=== PATIENT | female | born 1995 | race Caucasian/White ===

== ENCOUNTER → 2017-08-29 11:28 | Outpatient (CLI) | payer SELFPAY | PROVIDERS: Visit Provider Nurse Practitioner Women's Health | DX: N92.6 Irregular menstruation, unspecified (principal) | CPT/HCPCS: 36415; 84703 ==

== ENCOUNTER → 2019-02-18 12:42 | Outpatient (CLI) | payer SELFPAY ==
[2019-02-18 09:49] VITALS: BMI 26.3
[2019-02-24 15:45] LABS: HPV Reflexed? NOT INDICATED
== END ==
PROVIDERS: Referring Provider Obstetrics & Gynecology; Visit Provider Obstetrics & Gynecology
DX: Z12.4 Encounter for screening for malignant neoplasm of cervix (principal)
CPT/HCPCS: 87624; 88175; G0145

== ENCOUNTER 2021-09-12 09:18 | Outpatient (CLI) | payer SELFPAY ==
[2021-09-20 18:34] LABS: HPV Reflexed? NOT INDICATED
== END 2021-09-12 23:59 | disposition home or self-care (01) ==
PROVIDERS: Visit Provider Obstetrics & Gynecology
DX: Z12.4 Encounter for screening for malignant neoplasm of cervix (principal); Z34.00 Encounter for supervision of normal first pregnancy, unspecified trimester
CPT/HCPCS: 87086; 87088; 88175; G0145

== ENCOUNTER 2021-09-15 14:39 | Outpatient (CLI) | payer SELFPAY ==
[2021-09-15 15:15] LABS: Absolute Lymphocyte Count 1.78 X10^3/uL (0.83-4.51); Absolute Neutrophil Count 7.2 X10^3/uL (2.0-7.7); Basophil# 0.03 X10^3/uL; Basophil% 0.3 % (0-1); Hematocrit 39.7 % (37-47); Hemoglobin 13.5 g/dL (12.0-15.0); Lymphocyte # 1.78 X10^3/ul (0.83-4.51); Lymphocyte % 18.4 % (19-41); Mean Corpuscular Hgb 30.9 pg (27.0-32.0); Mean Corpuscular Volume 90.8 fL (81-99); Mean Platelet Vol. 10.4 fl (6.2-12.0); Monocyte# 0.61 X10^3/uL; Monocyte% 6.3 % (0-10); NRBC Flagged by Analyzer 0 % (0-5); Neutrophil # 7.15 X10^3/uL (2.7-7.7); Neutrophil % 73.8 % (47-70); Platelet Count 274 K/mm3 (150-450); RBC Distribution Width CV 11.4 % (11.6-14.6); RBC Distribution Width SD 38.2 fl (35.1-43.9); Red Blood Count 4.37 M/mm3 (4.2-5.4); White Blood Count 9.7 K/mm3 (4.4-11.0)
[2021-09-15 15:36] LABS: Glucose Challenge Gest 1H 50g 93 mg/dL (70-140)
[2021-09-18 08:02] LABS: Rubella IgG Reactive (Nonreactive)
== END 2021-09-15 23:59 | disposition home or self-care (01) ==
LOC: LAB 14:43
PROVIDERS: Referring Provider Obstetrics & Gynecology; Visit Provider Obstetrics & Gynecology
DX: Z34.00 Encounter for supervision of normal first pregnancy, unspecified trimester (principal)
CPT/HCPCS: 36415; 82950; 85025; 86762; 86850; 86900; 86901

== ENCOUNTER → 2021-12-15 | Outpatient (CLI) | payer SELFPAY ==
--- NOTE | 2021-12-15 12:42 | US_ITS ---
HISTORY: anatomy. LMP 07/22/2021. TECHNIQUE: Transabdominal pelvic ultrasound was performed. 140 images. COMPARISON: None. FINDINGS: INTRAUTERINE GESTATION(s): Single. PRESENTATION: Transverse, head to maternal left. HEART MOTION: 147 bpm. PLACENTA: Anterior and grade 0, no placenta previa. Small sonolucencies which may represent placental lakes. CERVIX: 4.1 cm in length and closed. AMNIOTIC FLUID: Largest pocket 3.8 x 9.8 cm. biometry- HEAD CIRCUMFERENCE: 18.6 cm, corresponding to 20 weeks 6 days. BIPARIETAL DIAMETER: 4.9 cm, corresponding to 20 weeks 5 days. ABDOMINAL CIRCUMFERENCE: 17 cm, corresponding to 22 weeks 0 days. FEMORAL LENGTH: 3.3 cm, corresponding to 20 weeks 1 day. ESTIMATED GESTATIONAL AGE: 20 weeks 6 days. ESTIMATED DUE DATE (DALIA): 04/18/2022. ESTIMATED WEIGHT: 408 g corresponding to 64th percentile. ANATOMY: Anterior and posterior cranial fossa, face with profile and nose/lips, bilateral upper and lower extremities, spine, four-chamber heart, three-vessel cord insertion, stomach, kidneys, and urinary bladder visualized. US/OB Anatomy Scan IMPRESSION: Single living intrauterine currently in transverse presentation with an estimated gestational age of 20 weeks 6 days. Probable placental lakes. Unremarkable anatomic survey. Electronically Signed: Oriana Viramontes MD at 10:30 EDT ,
== END | disposition home or self-care (01) ==
PROVIDERS: Referring Provider Obstetrics & Gynecology; Visit Provider Obstetrics & Gynecology
DX: Z34.01 Encounter for supervision of normal first pregnancy, first trimester (principal)
CPT/HCPCS: 76805; 76817

== ENCOUNTER → 2022-02-08 | Outpatient (CLI) | payer SELFPAY ==
[2022-02-08 13:34] LABS: Absolute Lymphocyte Count 1.54 X10^3/uL (0.83-4.51); Basophil# 0.02 X10^3/uL; Basophil% 0.2 % (0-1); Eosinophil# 0.08 X10^3/uL; Eosinophils% 0.9 % (0-5); Hemoglobin 11.4 g/dL (12.0-15.0); Lymphocyte # 1.54 X10^3/ul (0.83-4.51); Lymphocyte % 16.6 % (19-41); Mean Corp Hgb Conc 33.5 g/dL (32-36); Mean Corpuscular Hgb 29.7 pg (27.0-32.0); Mean Corpuscular Volume 88.5 fL (81-99); Mean Platelet Vol. 10.8 fl (6.2-12.0); Monocyte# 0.58 X10^3/uL; Monocyte% 6.2 % (0-10); NRBC Flagged by Analyzer 0 % (0-5); Neutrophil # 7.02 X10^3/uL (2.7-7.7); Neutrophil % 75.6 % (47-70); Platelet Count 194 K/mm3 (150-450); RBC Distribution Width CV 13.2 % (11.6-14.6); RBC Distribution Width SD 42.8 fl (35.1-43.9); Red Blood Count 3.84 M/mm3 (4.2-5.4); White Blood Count 9.3 K/mm3 (4.4-11.0)
[2022-02-08 13:51] LABS: Glucose Challenge Gest 1H 50g 95 mg/dL (70-140)
[2022-02-12 10:47] LABS: V-Zoster IgG (Immunity) < 135 index (Immune >165)
== END | disposition home or self-care (01) ==
PROVIDERS: Obstetrics & Gynecology; Referring Provider Nurse Practitioner Women's Health; Visit Provider Nurse Practitioner Women's Health
DX: Z34.00 Encounter for supervision of normal first pregnancy, unspecified trimester (principal); Z3A.11 11 weeks gestation of pregnancy
CPT/HCPCS: 36415; 82950; 85025; 86787; 86900; 86901

== ENCOUNTER → 2022-04-06 | Outpatient (CLI) | payer SELFPAY | END | disposition home or self-care (01) | LOC: LABSPEC 17:03 | PROVIDERS: Visit Provider Obstetrics & Gynecology | DX: Z34.93 Encounter for supervision of normal pregnancy, unspecified, third trimester (principal) | CPT/HCPCS: 87081 ==

== ENCOUNTER → 2022-04-16 | Outpatient (CLI) | payer SELFPAY ==
--- NOTE | 2022-04-16 13:35 | US_ITS ---
STUDY: SECOND AND THIRD TRIMESTER OBSTETRICAL ULTRASOUND REASON FOR EXAM: Female, 26 years old growth TECHNIQUE: Transabdominal PRIOR ULTRASOUND: 12/15/2021 FINDINGS: There is a single intrauterine fetus. The fetus is in a cephalic presentation. There is demonstrated cardiac activity with a heart rate of 131 bpm. There is a normal amniotic fluid volume. The largest amniotic fluid pocket measures 8.4 cm. The amniotic fluid index (NOE) is 20 cm. The placenta is anterior and not low-lying. There are Grade 2 placental changes. The bilateral adnexal regions are normal. BPD: 9.7 cm = 39 weeks, 4 day(s) HC: 35.1 cm = 40 weeks, 6 day(s) AC: 38.5 cm FL: 7.3cm = 37 weeks, 2 day(s) EGA by ultrasound: 39 weeks 3 day(s) DALIA by ultrasound: 04/20/2022 Estimated weight: 4253 grams Weight percentile: 99% US/OB Limited With Biometrics IMPRESSION: Living intrauterine with estimated gestational age of 39 weeks and 3 days. Electronically Signed: Yefri Noble MD at 23:44 EDT ,
== END | disposition home or self-care (01) ==
PROVIDERS: Referring Provider Obstetrics & Gynecology; Visit Provider Obstetrics & Gynecology
DX: O99.210 Obesity complicating pregnancy, unspecified trimester (principal); Z3A.38 38 weeks gestation of pregnancy
CPT/HCPCS: 76816

== ENCOUNTER → 2022-04-17 | Outpatient (CLI) | payer SELFPAY ==
[2022-04-17 17:53] LABS: Hemoglobin A1c 5.2 % (3.8-5.6)
== END | disposition home or self-care (01) ==
LOC: LAB 17:19
PROVIDERS: Visit Provider Obstetrics & Gynecology
DX: Z34.00 Encounter for supervision of normal first pregnancy, unspecified trimester (principal)
CPT/HCPCS: 36415; 83036

== ENCOUNTER 2022-04-26 02:50 | Inpatient (IN) | payer SELFPAY ==
[2022-04-26] VITALS (72 sets, daily range): BP systolic 99–151; BP diastolic 53–94; PULSE 75–175; TEMP 35.7–37.3; O2SAT 83–100; BMI 37.4
[2022-04-26] MEDS: LACTATED RINGERS 500 ML 999 ML IV ×2 (03:20→11:29)
[2022-04-26 03:47] LABS: Absolute Lymphocyte Count 2.69 X10^3/uL (0.83-4.51); Absolute Neutrophil Count 9.2 X10^3/uL (2.0-7.7); Basophil# 0.05 X10^3/uL; Basophil% 0.4 % (0-1); Eosinophil# 0.08 X10^3/uL; Eosinophils% 0.6 % (0-5); Hematocrit 36.9 % (37-47); Hemoglobin 12.4 g/dL (12.0-15.0); Lymphocyte # 2.69 X10^3/ul (0.83-4.51); Lymphocyte % 20.7 % (19-41); Mean Corp Hgb Conc 33.6 g/dL (32-36); Mean Corpuscular Volume 86.4 fL (81-99); Mean Platelet Vol. 11.6 fl (6.2-12.0); Monocyte# 0.92 X10^3/uL; Monocyte% 7.1 % (0-10); NRBC Flagged by Analyzer 0 % (0-5); Neutrophil # 9.17 X10^3/uL (2.7-7.7); Neutrophil % 70.7 % (47-70); Platelet Count 258 K/mm3 (150-450); RBC Distribution Width CV 13.7 % (11.6-14.6); RBC Distribution Width SD 42.8 fl (35.1-43.9); Red Blood Count 4.27 M/mm3 (4.2-5.4)
[2022-04-26] MEDS: Lactated Ringers 1,000 ML 200 ML IV ×3 (04:00→19:15)
[2022-04-26 04:12] LABS: Amphetamine Urine VISTA NEGATIVE (<1000 ng/mL); Barbiturate Urine VISTA NEGATIVE (< 200 ng/mL); Benzodiazepine Urine VISTA NEGATIVE (< 200 ng/mL); Cocaine Urine VISTA NEGATIVE (< 300 ng/mL); Ecstacy Urine VISTA NEGATIVE (< 500 ng/mL); Methadone Urine VISTA NEGATIVE (< 300 ng/mL); PCP Urine VISTA NEGATIVE (< 25 ng/mL); THC Urine VISTA NEGATIVE (< 50 ng/mL); Vista UDS pH Range 7
[2022-04-26] MEDS: Mag Hydrox/Al Hydrox/Simeth 30 ML UDC PO ×2 (05:41→15:57)
[2022-04-26 05:44] LABS: Syphilis Antibodies Non-reactive
[2022-04-26] MEDS: 0.9% Saline Lock 10 ML Syringe IV ×2 (06:28→21:49)
[2022-04-26] MEDS: Ondansetron 4 MG/2 ML Vial IV (06:28)
[2022-04-26 07:12] LABS: Chlamydia Trachomatis by PCR Negative (Negative); Neisserai gonorrhoeae by PCR Negative (Negative); Probe Check PASS; Sample Adequacy Control PASS; Specimen Processing Control PASS
[2022-04-26 08:45] LABS: HIV - WCH Non-Reactive (Nonreactive); Hepatitis B Surface Antigen Non-Reactive (Nonreactive); Hepatitis C Antibody Non-Reactive (Nonreactive)
--- NOTE | 2022-04-26 09:06 | HP.PCM.OB_ITS ---
HPI - General General Date of Admission: 04/26/22 HPI Narrative WILLIE TEMPLE, is a 26 F who presents IAL 4 cm dilated ROM clear fluid regular ctx doing well Maternal Data Information DALIA Calculator Estimated Delivery Date Method Current WG Current Estimate 04/28/22 Ultrasound #1 39w 5d Other Estimates 04/19/22 LMP (Certain) 41w 0d PFSH PFSH Medical History (Updated 04/26/22 @ 09:[address] Mildred Weems MD) macrosomia Polyhydramnios Psoriasis (a type of skin inflammation) Home Medications prenat.vits,lluvia,lzq-sbqm-gvdgu 1 tab PO DAILY 08/28/21 [History Last Taken 04/25/22 12:00] cholecalciferol (vitamin D3) 25 mcg (1,000 unit) capsule 25 mcg PO DAILY 02/22/22 [History Last Taken 04/25/22 12:00] magnesium oxide 500 mg capsule 500 mg PO DAILY 02/22/22 [History Last Taken 04/25/22 12:00] Allergy/AdvReac Type Severity Reaction Status Date / Time No Known Allergies Allergy Verified 04/24/22 16:03 Family History Mother Skin cancer Surgical History History of tonsillectomy Social History adopted: No household members: spouse and children number of children: 1 current occupational status: employed current occupation: [employer] pets and animals: Yes pets and animals: cat(s) and dog(s) Smoking Status: Never smoker alcohol intake: current details: social; not while substance use type: does not use caffeine: Yes what type of physical activity do you participate in: none seatbelt use: always do you feel safe at home: Yes additional social history: Patient works at [employer] History 1 Elective abortions Hx Para 0 Spontaneous abortions Hx # Term Pregnancies Ectopic pregnancies Hx # Pregnancies Multiple births # of living children 0 Visit Details Expected Delivery Route/Plan Labor Preferences- CB/BF classes: encouraged labor support person: Pierre labor intervention preferences: minimal intervention pain management options preferred: discussed, undecided cut cord/dad catch: yes : yes PP control planned: discussed discussed possible routes of delivery and associated risks: [] special requests: [] Plans Covid status: discussed Flu vaccine: discussed Tdap vaccine: given Rhogam: given LARC form signed: yes Problem list reviewed and updated with the most current plan of care details and appropriate orders placed. Relevant counseling for the gestational age provided. Continue routine care and follow up unless otherwise noted in visit notes/problem list details OB Flowsheet Initial Weight: Not Recorded Date -?-?-?-?-?-?-?-?-?-?-?-?- EGA Weight BP Urine Prot -?-?-?-?-?-?-?-?-?-?-?-?- Glucose FHR FuHt Pres Dilation -?-?-?-?-?-?-?-?-?-?-?-?- Effaced St Visit Note 09/12/21 -?-?-?-?-?-?-?-?-?-?-?-?- 7w 3d 209 lb 6 oz 128/80 -?-?-?-?-?-?-?-?-?-?-?-?- -?-?-?-?-?-?-?-?-?-?-?-?- JV- new dalia of 1 given based on CRL that was off by more than 1 week from LMP 10/13/21 -?-?-?-?-?-?-?-?-?-?-?-?- 11w 6d 206 lb 116/62 Negative -?-?-?-?-?-?-?-?-?-?-?-?- Negative 168 -?-?-?-?-?-?-?-?-?-?-?-?- SM- SM- no vb cramping SM- no vb cramping discussed varicella screen, didin't get drawn with original labs, plan avoidance and patient requested to be drawn with 28 week labs 11/09/21 -?-?-?-?-?-?-?-?-?-?-?-?- 15w 5d 210 lb 2 oz 139/84 139/84 Negative -?-?-?-?-?-?-?-?-?-?-?-?- Negative -?-?-?-?-?-?-?-?-?-?-?-?- 12/08/21 -?-?-?-?-?-?-?-?-?-?-?-?- 19w 6d 210 lb 6 oz 116/82 Nega tive -?-?-?-?-?-?-?-?-?-?-?-?- Negative 155 -?-?-?-?-?-?-?-?-?-?-?-?- JV- no lof, vagi nal bleeding, or cramping. + FM. anatomy ultrasound next week at [facility]. 01/05/22 -?-?-?-?-?-?-?-?-?-?-?-?- 23w 6d 211 lb 6 oz 108/82 Nega tive -?-?-?-?-?-?-?-?-?-?-?-?- Negative 140 24 -?-?-?-?-?-?-?-?-?-?-?-?- Sm- no vb lof go od fm nor egular ctx 02/08/22 -?-?-?-?-?-?-?-?-?-?-?-?- 28w 5d 213 lb 114/60 Negative -?-?-?-?-?-?-?-?-?-?-?-?- Negative 153 28 -?-?-?-?-?-?-?-?-?-?-?-?- -NO VB, LOF. Good FM. 28 wk labs, rhogam, tdap and larc 02/22/22 -?-?-?-?-?-?-?-?-?-?-?-?- 30w 5d 217 lb 2 oz 112/64 Nega tive -?-?-?-?-?-?-?-?-?-?-?-?- Negative 166 31 -?-?-?-?-?-?-?-?-?-?-?-?- -No VB, LOF. G ood FM. 08/26/22 -?-?-?-?-?-?-?-?-?-?-?-?- 32w 6d 216 lb 126/88 Negative -?-?-?-?-?-?-?-?-?-?-?-?- Negative 160 33 -?-?-?-?-?-?-?-?-?-?-?-?- JV- no lof, vagi nal bleeding, or dec fm. no complaints. 03/23/22 -?-?-?-?-?-?-?-?-?-?-?-?- 34w 6d 217 lb 110/72 Negative -?-?-?-?-?-?-?-?-?-?-?-?- Negative 163 36 -?-?-?-?-?-?-?-?-?-?-?-?- JV-no lof, vagin al bleeding, or dec fm. 04/06/22 -?-?-?-?-?-?-?-?-?-?-?-?- 36w 6d 222 lb 222 lb 116/80 -?-?-?-?-?-?-?-?-?-?-?-?- 125 38 Cephalic 0 -?-?-?-?-?-?-?-?-?-?-?-?- SM- no vb lof go od fm no regular ctx 04/13/22 -?-?-?-?-?-?-?-?-?-?-?-?- 37w 6d 221 lb 114/78 Negative -?-?-?-?-?-?-?-?-?-?-?-?- Negative 130 40 Cephalic -?-?-?-?-?-?-?-?-?-?-?-?- SM- no vb lof go od fm no regular ctx growth US ordered 04/17/22 -?-?-?-?-?-?-?-?-?-?-?-?- 38w 3d 224 lb 134/88 Negative -?-?-?-?-?-?-?-?-?-?-?-?- Negative 130 Cephalic 1.5 -?-?--?-?-?-?-?-?-?-?-?-?- 40 -3 SM- no vb lof good fm no regular ctx discussed IOL 39 weeks due to poly and LGA. brother getting saturday at their house patient requesting /saturday04/20/22 -?-?-?-?-?-?-?-?-?-?-?-?- 38w 6d 225 lb 2 oz 132/79 Nega tive -?-?-?-?-?-?-?-?-?-?-?-?- Negative 140 40 Cephalic 1 .5 -?-?-?-?-?-?-?-?-?--?-?-?- 40 -3 JV- recent us showed NOE of 20, pt does not want to be induced. we discussed holding a spot on the schedule for 39 + weeks and repeat us for NOE on Saturday prior to scheduled induction. we discussed that weight is 99th% (4300 grams) and LGA is technically not defined until after 5000g in a non- diabetic. NST reactive. 04/24/22 -?-?-?-?-?-?-?-?-?-?-?-?- 39w 3d 228 lb 4 oz 118/82 Nega tive -?-?-?-?-?-?-?-?-?-?-?-?- Negative 150 39 Cephalic 3 -?-?-?-?-?-?-?-?-?-?-?-?- 60 -3 JV- no lof , vaginal bleeding, or dec fm. JV- no lof, vaginal bleeding , or dec fm. pt requesting IOL 04/26/22 -?-?-?-?-?-?-?-?-?-?-?-?- 39w 5d 224 lb 12.8 oz 136/8 2 128/61 124/62 137/74 115/58 129/78 -?-?-?-?-?-?-?-?-?-?-?-?- -?-?-?-?-?-?-?-?-?-?-?-?- NST FHR Rate Baby A Baseline: 130 Variability:: Moderate Accelerations:: 15 x 15 Decelerations:: None NST Reactive:: Yes FHR Category:: Category I Uterine Activity:: q2-3 ROS Constitutional Constitutional: Reports systems reviewed and no addt'l complaints, except as documented ENT HEENT: Reports systems reviewed and no addt'l complaints, except as documented Cardiovascular Cardiovascular: Reports systems reviewed and no addt'l complaints, except as documented Respiratory/Chest Respiratory/Chest: Reports systems reviewed and no addt'l complaints, except as documented Gastrointestinal Gastrointestinal: Reports systems reviewed and no addt'l complaints, except as documented and nausea; Denies abdominal pain Genitourinary Genitourinary: Reports systems reviewed and no addt'l complaints, except as documented, contractions Details: present and frequency (regular ) and movement Details: present Musculoskeletal Musculoskeletal: Reports systems reviewed and no addt'l complaints, except as documented Integumentary Integumentary: Reports as per HPI Neurologic Neurologic: Reports systems reviewed and no addt'l complaints, except as documented Endocrine Endocrinology: Reports systems reviewed and no addt'l complaints, except as documented Vital Signs Vital Signs Vital Signs: 04/26/22 03:00 04/26/22 03:00 04/26/22 03:06 Temperature Temperature Source Pulse Rate 93 Blood Pressure 136/82 H BP Systolic 136 BP Diastolic 82 Pulse Ox 99 04/26/22 03:06 04/26/22 03:05 04/26/22 05:34 Temperature Temperature Source Pulse Rate 89 Blood Pressure 128/61 H BP Systolic 128 BP Diastolic 61 Pulse Ox 98 04/26/22 05:34 04/26/22 06:20 04/26/22 06:20 Temperature Temperature Source Pulse Rate 93 92 Blood Pressure BP Systolic BP Diastolic Pulse Ox 96 04/26/22 06:21 04/26/22 06:22 04/26/22 06:22 Temperature Temperature Source Temporal Pulse Rate 78 Blood Pressure 124/62 H BP Systolic 124 BP Diastolic 62 Pulse Ox 04/26/22 06:21 04/26/22 06:33 04/26/22 06:33 Temperature 97.1 F L Temperature Source Pulse Rate 100 Blood Pressure BP Systolic BP Diastolic Pulse Ox 96 04/26/22 07:20 04/26/22 07:20 04/26/22 07:19 Temperature Temperature Source Pulse Rate 109 H Blood Pressure 137/74 H BP Systolic 137 BP Diastolic 74 Pulse Ox 100 04/26/22 07:22 04/26/22 07:22 04/26/22 07:23 Temperature Temperature Source Temporal Pulse Rate 85 Blood Pressure 115/58 L BP Systolic 115 BP Diastolic 58 Pulse Ox 04/26/22 07:23 04/26/22 07:23 04/26/22 07:23 Temperature 96.3 F L Temperature Source Pulse Rate 85 Blood Pressure BP Systolic BP Diastolic Pulse Ox 100 04/26/22 08:43 04/26/22 08:43 Temperature Temperature Source Pulse Rate 95 Blood Pressure 129/78 H BP Systolic 129 BP Diastolic 78 Pulse Ox Weight Weight: 224 lb 12.8 oz Body Mass Index (BMI) 37.4 Physical Exam Const alert, oriented x3 and healthy appearing Constitutional Narrative: uncomfortable with contractions HEENT normocephalic and moist oral mucous membranes Head and Scalp: atraumatic Neck full ROM, no lymphadenopathy, supple and thyroid normal General: trachea midline Thyroid: thyroid normal Lymph Lymphatic: no lymphadenopathy noted Chest inspection of chest normal Resp normal respiratory effort Cardio regular rate GI normal to inspection, nondistended, normoactive bowel sounds, soft to palpation and non-tender Inspection: gravid external exam normal Bimanual Exam - Vag & Uterus: uterus non-tender Manual OB Exam: estimated gestational size appropriate, presentation cephalic, dilated, effaced and station Extremity normal to inspection General Extremity: Negative for edema Skin no rashes or lesions noted Neuro deep tendon reflexes 2+ bilaterally Motor Exam: strength 5/5 throughout and clonus absent Psych mental status grossly normal Labs Labs Labs: Blood Type B NEGATIVE Antibody Screen NEGATIVE Hct 36.9 % (37-47) L Hgb 12.4 g/dL (12.0-15.0) Obstetrics US Syphilis Total Ab Non-reactive VZV IgG Antibody < 135 index (Immune >165) L Rubella IgG Antibody Reactive (Nonreactive) Hep Bs Antigen Non-Reactive (Nonreactive) HIV 1&2 Antibody Non-Reactive (Nonreactive) Glucose 1 Hr 50 gm 95 mg/dL (70-140) Assessment & Plan (1) MAHNAZ I (cervical intraepithelial neoplasia I): COMMENT: lgsil, colp done, fu pap PP (2) Supervision of normal first : QUALIFIERS: Trimester: first trimester Qualified Code(s): Z34.01 - Encounter for supervision of normal first , first trimester COMMENT: PRR (SP) DALIA:04/28/22 sreekanth garica Spouse:Pierre(Ashwin) (3) : QUALIFIERS: Weeks of gestation: 39 weeks Qualified Code(s): Z3A.39 - 39 weeks gestation of COMMENT: GBS Negative, nl anatomy scan; Discussed carrier and genetic screen. FOB has brother with hemophilia. (4) Unknown varicella vaccination status: COMMENT: lab ordered-do w 28 wk labs, non-immune, recommend varicella vaccination (5) Obesity affecting : COMMENT: 1 TM GCT nl. encouraged healthy weight gain. (6) Rh negative status during : COMMENT: 02/08/22 (7) History of tetanus, diphtheria, and acellular pertussis booster vaccination (Tdap): COMMENT: 02/08/22 (8) Polyhydramnios: COMMENT: IOL declined by patient, reassuring testing (9) LGA (large for gestational age) fetus: COMMENT: 99%ile 4250g 04/16, HgA1c nl 05/05 nl GCT previously (10) Active labor at term: COMMENT: exp management, pitoci PRN. epidural if desired but wants minimal intervention (11) SROM (spontaneous rupture of membranes):
[2022-04-26] MEDS: fentaNYL 100 MCG/2 ML Ampul IV ×3 (12:06→21:47)
[2022-04-26] MEDS: fentaNYL-bupivacaine (epidural) 100 ML BAG EPIDURAL ×2 (12:24→16:01)
[2022-04-26] MEDS: Oxytocin 10 UNITS/ML Vial IM (21:31)
--- NOTE | 2022-04-26 22:03 | OP.PCM_ITS ---
Assessment & Plan (1) SROM (spontaneous rupture of membranes): (2) Active labor at term: COMMENT: exp management, pitoci PRN. epidural if desired but wants minimal intervention (3) MAHNAZ I (cervical intraepithelial neoplasia I): COMMENT: lgsil, colp done, fu pap PP (4) Supervision of normal first : QUALIFIERS: Trimester: first trimester Qualified Code(s): Z34.01 - Encounter for supervision of normal first , first trimester COMMENT: PRR (SP) DALIA:04/28/22 sreekanth garcia Spouse:Pierre(Ashwin) (5) : QUALIFIERS: Weeks of gestation: 39 weeks Qualified Code(s): Z3A.39 - 39 weeks gestation of COMMENT: GBS Negative, nl anatomy scan; Discussed carrier and genetic screen. FOB has brother with hemophilia. (6) Unknown varicella vaccination status: COMMENT: lab ordered-do w 28 wk labs, non-immune, recommend varicella vaccination (7) Obesity affecting : COMMENT: 1 TM GCT nl. encouraged healthy weight gain. (8) Rh negative status during : COMMENT: 02/08/22 (9) History of tetanus, diphtheria, and acellular pertussis booster vaccination (Tdap): COMMENT: 02/08/22 (10) Polyhydramnios: COMMENT: IOL declined by patient, reassuring testing (11) LGA (large for gestational age) fetus: COMMENT: 99%ile 4250g 04/16, HgA1c nl 05/05 nl GCT previously (12) Vaginal delivery: COMMENT: SM 39 IAL sreekanth ibrahim Maternal Data Information DALIA Calculator Estimated Delivery Date Method Current WG Current Estimate 04/28/22 Ultrasound #1 39w 5d Other Estimates 04/19/22 LMP (Certain) 41w 0d Vaginal Delivery Operative Information Pre-Operative Diagnosis: IAL Post-Operative Diagnosis: same Surgery / Procedure Performed: Spontaneous Vaginal Delivery Type of Anesthesia: Epidural Special Medications: none Estimated Blood Loss: 100 Fluids Replaced: crystalloid Findings Description of Procedure: Patient began pushing and delivered the head in the ANNI presentation. The head was delivered atraumatically and a loose nuchal cord ?1 was identified and the infant delivered through without complication. The anterior and posterior shoulders delivered without complication followed by the rest of the infant and the was placed on the maternal abdomen. Delayed cord clamping was employed for approximately 60 seconds. Cord was clamped and cut and gentle traction was applied to the cord and the placenta delivered spontaneously immediately following it was noted to be intact with three-vessel cord. The perineum and vagina were inspected and noted to have a partial third degree laceration repaired in the usual fashion with 2-0 vicryl and 3-0 vicryl rapide. EBL was 400. Patient and infant tolerated delivery well. Presentation: ANNI Amniotic Membrane Rupture Type: Spontaneous Amniotic Fluid Description: Clear Placental Delivery Description: Spontaneous Placenta Disposition: [facility] Cord Vessel Description: 3 Vessels Cord Entanglement: None Delayed Cord Clamping: Yes Post Vaginal Delivery Medications Given After Delivery: IV Pitocin Episiotomy Description: None Laceration: Perineal Extension/lac and 3rd degree Complication Complications: None Procedures Urinary/Genital [id number]: [id number] Vaginal Delivery [facility]
--- NOTE | 2022-04-26 22:07 | DCINST_ITS ---
Discharge Instructions Diet Discharge Diet: No restrictions Activity Discharge Activity: Return to Normal Activity, May Drive, May Shower and May Take a Tub Bath (in 4 weeks) May resume sexual activity in: 6-8 weeks (after seen by OB provider) Weight Bearing Status: Full weight bearing Lifting Restrictions: none Dressing / Incision Call your doctor if you observe: Fever of 101 or Higher, Inability to urinate, Using more than 1 pad per hour (for more than 2 hours in a row or more), Shortness of breath, Dizziness, Chest pain and - (headache not controlled with tylenol, change in vision) Follow Up Care When: in 6 weeks for visit, call the office to make the appointment. If you had elevated blood pressures call the office to be seen within 1 week. Test Results: Test results from this visit will be discussed in further detail at your follow- up appointment, if applicable. Discharge Plan Admission Admit Date/Time: 04/26/22 02:50 Attending Provider: Mildred Weems Primary Care Provider: Care Physician,Polina Primary Discharge Orders/Prescriptions Prescriptions: No Action prenat.vits,lluvia,dch-bwoj-aakal Tablet 1 tab PO DAILY magnesium oxide 500 mg capsule 500 mg PO DAILY cholecalciferol (vitamin D3) 25 mcg (1,000 unit) capsule 25 mcg PO DAILY Referrals / Follow Up: Care Physician,No Primary [Primary Care Provider] - Disposition Disposition (needs filled in before D/C Order can be placed): Home, Self Care
[2022-04-27 00:01] VITALS: BP 113/57; PULSE 98; TEMP 37.2; O2SAT 99
[2022-04-27] MEDS: Naproxen 500 MG Tablet PO ×3 (00:09→21:59)
[2022-04-27] MEDS: Benzocaine/Lanolin/Aloe Vera 1 SPRAY EACH TOPICAL (00:10)
--- NOTE | 2022-04-27 02:16 | NURSING ---
report given to allen TAYLOR. that RN to assume care of pt at this time
[2022-04-27 04:15] VITALS: BP 107/52; PULSE 82; RESP 14; TEMP 36.6; O2SAT 98
[2022-04-27] MEDS: Acetaminophen 500 MG Tablet 1000 MG PO (04:29)
--- NOTE | 2022-04-27 07:39 | PCM.PN.OB ---
Subjective Subjective Patient doing well without complaints. Tolerating PO. Ambulating and voiding without difficulty. feeding well. Denies chest pain, shortness of breath, calf pain/swelling, fevers, chills, lightheadedness. Objective Data Objective Data Vital Signs: Vital Signs Temp Pulse Resp BP Pulse Ox O2 Del Method 97.8 F 82 14 107/52 L 98 Room Air 04/27/22 04:15 04/27/22 04:15 04/27/22 04:15 04/27/22 04:15 04/27/22 04:15 04/27/22 04:15 Oxygen Delivery Method Room Air Weight: 224 lb 12.8 oz Body Mass Index (BMI) 37.4 Intake & Output: Intake and Output for Last 24 Hours 04/25/22 04/26/22 04/27/22 23:59 23:59 23:59 Intake Total 4400 / 4400 1000 / 1000 Output Total 1500 / 1500 900 / 900 Balance 2900 / 2900 100 / 100 Lab / Micro Data Result Diagrams: 04/26/22 03:40 Labs: Laboratory Results - last 24 hr 04/26/22 03:40: Hep Bs Antigen Non-Reactive, Hepatitis C Antibody Non-Reactive, HIV 1&2 Antibody Non-Reactive 04/27/22 00:12: Screen NEGATIVE, Baby's Blood Type B POSITIVE, Baby's MEGAN NEGATIVE Micro: Microbiology 04/26/22 03:40 Nasal Secretion SARS-CoV-2 Antigen (Rapid) - Final ROS Constitutional Constitutional: Reports systems reviewed and no addt'l complaints, except as documented Cardiovascular Cardiovascular: Reports systems reviewed and no addt'l complaints, except as documented Respiratory/Chest Respiratory/Chest: Reports systems reviewed and no addt'l complaints, except as documented Gastrointestinal Gastrointestinal: Reports systems reviewed and no addt'l complaints, except as documented Physical Exam Const alert, oriented x3 and no apparent distress HEENT Head and Scalp: atraumatic Resp normal respiratory effort GI soft to palpation and non-tender Bimanual Exam - Vag & Uterus: uterus non-tender Uterus Palpation: uterus fundus firm (below Umbilicus) Assessment & Plan (1) Rh negative status during : COMMENT: 02/08/22 (2) Vaginal delivery: COMMENT: SM 39 IAL boy xaviour PLAN: Plan s/p PPD # 1 1. routine post delivery care 2. breast feeding- support given 3. rh negative 4. rubella immune
[2022-04-27 10:00] VITALS: BP 129/67; PULSE 91; RESP 16; TEMP 37.1
[2022-04-27] MEDS: Magnesium Chloride 64 MG Delay Rel.Tablet 128 MG PO (10:30)
[2022-04-27 13:09] VITALS: BP 104/61; PULSE 96; RESP 16; TEMP 36.9
[2022-04-27] MEDS: Senna/Docusate Sodium 1 Tablet PO (16:55)
[2022-04-27 17:00] VITALS: BP 143/72; PULSE 99; RESP 16; TEMP 36.6
[2022-04-27 20:31] VITALS: BP 101/57; PULSE 84; RESP 14; TEMP 37.1; O2SAT 99
[2022-04-27] MEDS: oxyCODONE 5 MG Tablet PO (22:00)
[2022-04-28 02:00] VITALS: BP 99/63; PULSE 85; RESP 16; TEMP 37; O2SAT 100
[2022-04-28] MEDS: Acetaminophen 500 MG Tablet 1000 MG PO ×2 (05:21→11:41)
--- NOTE | 2022-04-28 07:32 | PCM.PN.OB ---
Subjective Subjective Patient doing well without complaints. Tolerating PO. Ambulating and voiding without difficulty. feeding well. Denies chest pain, shortness of breath, calf pain/swelling, fevers, chills, lightheadedness. Objective Data Objective Data Vital Signs: Vital Signs Temp Pulse Resp BP Pulse Ox O2 Del Method 98.6 F 85 16 99/63 100 Room Air 04/28/22 02:00 04/28/22 02:00 04/28/22 02:00 04/28/22 02:00 04/28/22 02:00 04/28/22 02:00 Oxygen Delivery Method Room Air Weight: 224 lb 12.8 oz Body Mass Index (BMI) 37.4 Intake & Output: Intake and Output for Last 24 Hours 04/26/22 04/27/22 04/28/22 23:59 23:59 23:59 Intake Total 4400 / 4400 1000 / 1000 Output Total 1500 / 1500 900 / 900 Balance 2900 / 2900 100 / 100 Lab / Micro Data Result Diagrams: 04/26/22 03:40 Micro: Microbiology 04/26/22 03:40 Nasal Secretion SARS-CoV-2 Antigen (Rapid) - Final ROS Constitutional Constitutional: Reports systems reviewed and no addt'l complaints, except as documented Cardiovascular Cardiovascular: Reports systems reviewed and no addt'l complaints, except as documented Respiratory/Chest Respiratory/Chest: Reports systems reviewed and no addt'l complaints, except as documented Gastrointestinal Gastrointestinal: Reports systems reviewed and no addt'l complaints, except as documented Physical Exam Const alert, oriented x3 and no apparent distress HEENT Head and Scalp: atraumatic Resp normal respiratory effort GI soft to palpation and non-tender Bimanual Exam - Vag & Uterus: uterus non-tender Uterus Palpation: uterus fundus firm (below Umbilicus) Assessment & Plan (1) Vaginal delivery: COMMENT: SM 39 IAL boy xaviour (2) Rh negative status during : COMMENT: 02/08/22 PLAN: Plan s/p PPD # 2 1. routine post delivery care 2. breast feeding- support given 3. rh negative 4. rubella immune
[2022-04-28 08:50] VITALS: BP 115/73; PULSE 86; RESP 18; TEMP 36.9; O2SAT 97
[2022-04-28] MEDS: Naproxen 500 MG Tablet PO (09:28)
[2022-04-28] MEDS: Dibucaine 30 GM Tube 1 APPLIC TOPICAL (09:28)
[2022-04-28] MEDS: Senna/Docusate Sodium 1 Tablet PO (09:28)
== END 2022-04-28 12:10 | disposition home or self-care (01) | DRG 768 ==
PROVIDERS: Obstetrics & Gynecology; Admitting Provider Obstetrics & Gynecology; Visit Provider Obstetrics & Gynecology
DX: O40.3XX0 Polyhydramnios, third trimester, not applicable or unspecified (principal); Z37.0 Single live birth; O70.20 Third degree perineal laceration during delivery, unspecified; E66.8 Other obesity; O36.63X0 Maternal care for excessive fetal growth, third trimester, not applicable or unspecified; O69.81X0 Labor and delivery complicated by cord around neck, without compression, not applicable or unspecified; Z3A.39 39 weeks gestation of pregnancy; Z92.29 Personal history of other drug therapy; Z67.91 Unspecified blood type, Rh negative; O99.214 Obesity complicating childbirth
CPT/HCPCS: 59025; 59050; 80307; 85025; 85461; 86703; 86780; 86803; 86850; 86900; 86901; 87340; 87426; 87491; 87591; 90384; 99218; J7120; A4216; G0378; J2405; J2790

== ENCOUNTER → 2023-09-09 | Outpatient (CLI) | payer SELFPAY ==
--- OUTSIDE RECORDS SUMMARY | 2023-09-09 23:10 | XMS RPT_ITS | CCD ---
Author Name Unknown Address [address] [place] [address] Organization [facility] Care Team Providers Care Agriculture Technician Name Role Phone PHYSICIAN, NONE Primary Care Unavailable BRANDIE APARICIO Attending Unavailable REFERRING, PHY WO [phone] Referring Unava ilable Results Test Name Value Interpretation Reference Range Facil ity Encounters Encounter Date Encounter Type Care Provider Facility Start: 03-29-2018 End: 03-29-2018 Emergency department patient visit NONE PHYSICIAN Facil ity:A Payers Date Payer Category Payer Unknown [place]000 [id number] 1995 Unknown [id number] Summary Purpose Family History No Family History Records Found Advance Directives No Advanced Directives Records Found Additional Source Comments INFORMATION SOURCE (unrecogn ized section and content) FOR RECORDS PERTAINING TO PATIENTS WHO ARE OR HAVE BEEN ENROLLED IN A CHEMICAL DEPENDENCY/SUBSTANCEABUSE PROGRAM, SOME INFORMATION MAY BE OMITTED. This clinical summary was aggregated from multiple sources. Caution should be exercised in using it in the provision of clinical care. This summary normalizes information from multiple sources, and as a consequence, information in this document may materially change the coding, format and clinical context of patient data. In addition, data may be omitted in some cases. CLINICAL DECISIONS SHOULD BE BASED ON THE PRIMARY CLINICAL RECORDS. [facility]. provides no warranty or guarantee of the accuracy or completeness of information in this document.
[2023-09-13 15:08] LABS: HPV APTIMA, High Risk Positive (Negative)
== END | disposition home or self-care (01) ==
PROVIDERS: Referring Provider Nurse Practitioner Women's Health; Visit Provider Nurse Practitioner Women's Health
DX: Z12.4 Encounter for screening for malignant neoplasm of cervix (principal)
CPT/HCPCS: 87624; 88175; G0145

== ENCOUNTER → 2025-02-12 | Outpatient (CLI) | payer SELFPAY ==
[2025-02-12 11:45] LABS: Hematocrit 40.9 % (37-47); Hemoglobin 13.8 g/dL (12.0-15.0); Immature Granulocytes Count 0.040 X10^3/uL (0.0-0.0); Mean Corp Hgb Conc 33.7 g/dL (32-36); Mean Corpuscular Volume 88.9 fL (81-99); Mean Platelet Vol. 10.9 fl (6.2-12.0); NRBC Flagged by Analyzer 0 % (0-5); Platelet Count 268 K/mm3 (150-450); RBC Distribution Width CV 11.9 % (11.6-14.6); RBC Distribution Width SD 37.7 fl (35.1-43.9); Red Blood Count 4.60 M/mm3 (4.2-5.4); White Blood Count 9.0 K/mm3 (4.4-11.0)
[2025-02-12 12:31] LABS: HIV Nonreactive (Nonreactive); Hepatitis B Surface Antigen Nonreactive (Nonreactive); Hepatitis C Antibody Nonreactive (Nonreactive); Syphilis Antibodies Nonreactive (Nonreactive)
[2025-02-15 21:07] LABS: Chlamydia By Nucleic Acid AMP Negative (Negative); Gonococcus By Nucleic Acid AMP Negative (Negative)
[2025-02-16 15:08] LABS: HPV APTIMA, High Risk Positive (Negative)
== END | disposition home or self-care (01) ==
LOC: BWCLAB 09:28
PROVIDERS: Referring Provider Advanced Practice Midwife; Visit Provider Advanced Practice Midwife
DX: Z12.4 Encounter for screening for malignant neoplasm of cervix (principal); O99.210 Obesity complicating pregnancy, unspecified trimester; Z3A.00 Weeks of gestation of pregnancy not specified
CPT/HCPCS: 36415; 83036; 85025; 86703; 86762; 86780; 86803; 86850; 86900; 86901; 87086; 87340; 87491; 87591; 87624; 88175; G0145

== ENCOUNTER → 2025-07-02 | Outpatient (CLI) | payer SELFPAY ==
--- NOTE | 2025-07-02 13:01 | US_ITS ---
PROCEDURE: OB LIMITED WITH BIOMETRICS 07/02/2025 REASON FOR EXAM: GROWTH SCAN TWINS @ [facility] TECHNIQUE: Procedure Code: [id number] Modality: US Procedure: OB LIMITED WITH BIOMETRICS COMPARISON: 02/12/2025 FINDINGS NUMBER: Twin gestation CERVIX: Long and closed measuring 4.0 cm in length. Unremarkable as visualized. LMP gestational age: 26 weeks 6 days LMP DALIA: October 02, 2025 TWIN A: POSITION: position is breech on the maternal left side. HEART RATE: The heart rate is 155 BPM and regular. BIOMETRICS: Based on composite biometry, the composite estimated gestational age by ultrasound is 26 weeks 3 days. Sonographic gestational age: 26 weeks 3 days Sonographic DALIA: October 05, 2025 ANATOMIC SURVEY: Detailed anatomy survey not performed. PLACENTA: The placenta is posterior, grade 0. No demonstrated evidence of previa or abruption. AMNIOTIC FLUID: Within normal limits. Maximal vertical pocket (MVP) measuring 5.5 cm. SONOGRAPHIC MEASUREMENTS: BPD: 6.6 cm; 26 weeks 4 days HC: 24.4 cm; 26 weeks 4 days AC: 22.9 cm; 27 weeks 2 days FL: 4.7 cm; 25 weeks 4 days Estimated weight: 965 grams +/-145 grams (2 pounds, 2 ounces) EFW percentile: 30.6 % TWIN B: POSITION: position is breech on the maternal right side. HEART RATE: The heart rate is 158 BPM and regular. BIOMETRICS: Based on composite biometry, the composite estimated gestational age by ultrasound is 26 weeks 4 days. Sonographic gestational age: 26 weeks 4 days Sonographic DALIA: October 04, 2025 ANATOMIC SURVEY: Detailed anatomy survey not performed. PLACENTA: The placenta is posterior, grade 0. No demonstrated evidence of previa or abruption. AMNIOTIC FLUID: Within normal limits. Maximum vertical pocket (MVP) measuring 4.8 cm. SONOGRAPHIC MEASUREMENTS: BPD: 6.6 cm; 26 weeks 4 days HC: 24.4 cm; 26 weeks 3 days AC: 24.4 cm; 27 weeks 6 days FL: 4.7 cm; 25 weeks 5 days Estimated weight: 1015 grams +/-152 grams (2 pounds, 4 ounces) EFW percentile: 44.3 % US/OB Limited With Biometrics IMPRESSION: 1. Live twin gestation with concordant gestational ages. Size equals dates wit h normal interval growth. 2. No acute abnormality detected. Reading Location: [id number]
== END | disposition home or self-care (01) ==
PROVIDERS: Referring Provider Obstetrics & Gynecology; Visit Provider Obstetrics & Gynecology
DX: O30.039 Twin pregnancy, monochorionic/diamniotic, unspecified trimester (principal); O09.90 Supervision of high risk pregnancy, unspecified, unspecified trimester; Z3A.25 25 weeks gestation of pregnancy
CPT/HCPCS: 76816

== ENCOUNTER → 2025-07-12 | Outpatient (CLI) | payer SELFPAY ==
[2025-07-12 12:25] LABS: Hematocrit 28.4 % (37-47); Hemoglobin 9.8 g/dL (12.0-15.0); Immature Granulocytes Count 0.040 X10^3/uL (0.0-0.0); Mean Corp Hgb Conc 34.5 g/dL (32-36); Mean Corpuscular Volume 89.3 fL (81-99); Mean Platelet Vol. 10.8 fl (6.2-12.0); NRBC Flagged by Analyzer 0 % (0-5); Platelet Count 205 K/mm3 (150-450); RBC Distribution Width CV 13.4 % (11.6-14.6); RBC Distribution Width SD 44.0 fl (35.1-43.9); Red Blood Count 3.18 M/mm3 (4.2-5.4); White Blood Count 7.7 K/mm3 (4.4-11.0)
[2025-07-12 14:04] LABS: Glucose Challenge Gest 1H 50g 127 mg/dL (70-140); HIV Nonreactive (Nonreactive); Syphilis Antibodies Nonreactive (Nonreactive)
== END | disposition home or self-care (01) ==
PROVIDERS: Advanced Practice Midwife; Visit Provider Obstetrics & Gynecology
DX: O26.899 Other specified pregnancy related conditions, unspecified trimester (principal); Z67.91 Unspecified blood type, Rh negative; Z3A.25 25 weeks gestation of pregnancy; O30.039 Twin pregnancy, monochorionic/diamniotic, unspecified trimester
CPT/HCPCS: 36415; 82950; 85025; 86703; 86780; 86850; 86900; 86901